=== PATIENT | male | born 1965 | race Caucasian/White ===

== ENCOUNTER 2017-04-21 13:36 | Inpatient (IN) ==
[2017-04-21 13:53] LABS: MANUAL DIFF NEEDED? NO
[2017-04-21 13:58] LABS: BASO% 0.6 % (0.0-0.8); EOS# 0.25 X1000 (0.0-0.7); EOS% 1.9 % (0.0-10.0); HEMATOCRIT 42.9 % (42.0-52.0); HEMOGLOBIN 15.1 g/dL (14.0-18.0); IMM GRAN# 0.08 X1000 (0.0-0.04); IMM GRAN% 0.6 % (0.0-0.5); LYMPH# 2.61 X1000 (1.2-3.4); LYMPH% 19.7 % (20.5-51.1); MCH 30.8 PG (27-31); MCHC 35.2 g/dL (33-37); MCV 87.6 FL (81-99); MONO# 1.41 X1000 (0.11-0.59); MONO% 10.6 % (1.7-9.3); MPV 9.6 FL (7.4-10.4); NEUT% 66.6 % (42.2-75.2); PLT 382 X1000 (130-400)
[2017-04-21] MEDS ORDERED: NS 1,000 ML IV ONE (14:12)
--- NOTE | 2017-04-21 14:13 | Diag Imaging Result Doc PS360 ---
CHEST-2 VIEWS - 04/21/2017 INDICATION: decreased breath sounds on left TECHNIQUE: COMPARISON: None FINDINGS: There is complete opacification of the left lung with volume loss and mediastinal shift to the left. The right lung is grossly clear. No pneumothorax. IMPRESSION: Significant collapse of the left lung. This probably mostly represent atelectasis. Consider chest CT for further evaluation. Intravenous contrast is recommended. Electronically signed by Wilder Gilbert 04/21/2017 2:11 PM
[2017-04-21 14:14] LABS: AGAP 15; ALBUMIN 3.7 g/dL (3.5-5.0); ALKALINE PHOSPHATASE 80 U/L (32-122); BUN 7 mg/dL (8-22); CALCIUM 9.5 mg/dL (8.8-10.2); CHLORIDE 99 mmol/L (98-107); COSMO 277; GOT 20 U/L (10-34); GPT 20 U/L (10-44); POTASSIUM 4.2 mmol/L (3.5-5.1); SODIUM 139 mmol/L (136-145); TCO2 25 mmol/L (25-35); TOTAL BILIRUBIN 0.15 mg/dL (0.20-1.00)
[2017-04-21 14:40] LABS: INR 0.92; PROTIME 9.6 Seconds (9.2-11.7); PTT 25.9 Seconds (22.0-36.0)
--- NOTE | 2017-04-21 15:11 | Diag Imaging Result Doc PS360 ---
THORAX/ABDOMEN/PELVIS - 04/21/2017 INDICATION: SOB with L hip and abd pain TECHNIQUE: A CT dose reduction protocol was used. COMPARISON: None FINDINGS: CHEST: There is a large ill-defined mass centered at the subcarinal fossa, with extensive extension into the left hilum. This causes complete obstruction of the left mainstem bronchus. There is complete collapse of the left lung with a small left pleural effusion. There is severe deviation of the mediastinum and trachea towards the left. There is mild right hilar adenopathy as well. The right lung is somewhat hyperexpanded to make up for the volume loss. The left lung is clear. Bony structures are intact. Abdomen and pelvis: There are cholecystectomy clips. The liver, pancreas, spleen, adrenals, and kidneys are normal. There is moderate vascular disease of the abdominal aorta but no aneurysm or severe stenosis. No bowel obstruction or inflammation. Normal appendix. Urinary bladder, prostate, and rectum are normal. There is a large, ill-defined erosive mass at the left sacral wing. This causes erosion of the midline and the left side of the wing. This also completely fills the S2 and S3 neural foramina. This mass measures about 4.4 x 5.7 cm in AP and lateral dimensions. There are lower lumbar spine fusion changes. IMPRESSION: 1. Large mediastinal mass centered at the left mainstem bronchus, with complete obstruction of the bronchus and collapse of the left lung. There is a small left pleural effusion. 2. 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 Electronically signed by Wilder Gilbert 04/21/2017 3:08 PM
--- NOTE | 2017-04-21 15:47 | PROVIDER DOCUMENTATION ---
This chart was entered by Corinne Olson Scribe, acting as scribe for Lorena Asher MD. HPI-General Adult - General Chief Complaint: Cough Stated Complaint: POSS COLLAPSED LUNG Time Seen by Provider: 04/21/17 14:05 Source: patient Allergies/Adverse Reactions: Patient Allergies Allergy/AdvReac Type Severity Reaction Status Date / Time No Known Allergies Allergy Verified 04/21/17 13:43 Home Medications: Home Medication List Medication Instructions Recorded Confirmed Last Taken Type Hydrocodone/Acetaminophen [[place] 1 each PO DAILY 04/21/17 04/21/17 04/21/17 History 10-325 Tablet] - History of Present Illness -Gen Adult Nature of Presenting Problems: Pt is a 51 yom who came to the ED with a cc of coughing up blood. Pt reports he was at urgent care for back pain and the Doctor listened to his lungs and didn' t hear any breath sounds on the left side. Pt was sent to x-ray and the doctor told him to come to the ED because the left lung is completely white. Pt reports he has been coughing up blood for six months but other than that he is asymptomatic. Location of Pain/Injury: reports: none Pain Radiation: reports: no radiation Quality of Pain: reports: none Onset/Duration: reports: unsure Timing: reports: still present Context/Activities at Onset: reports: none Modifying Factors: improves with: coughing Associated Symptoms: reports: cough Similar Symptoms Previously?: No Recently seen or treated by another doctor?: Yes Review of Systems - Adult - REVIEW OF SYSTEMS - ADULT Constitutional: denies: chills, fever Eyes: reports: no symptoms reported Ears, Nose, Mouth & Throat: reports: no symptoms reported Cardiovascular: denies: chest pain, heart murmur, orthopnea Respiratory: reports: cough, hemoptysis. denies: dyspnea on exertion, pleurisy , shortness of breath Gastrointestinal: reports: no symptoms reported Genitourinary: reports: no symptoms reported Musculoskeletal: reports: no symptoms reported Integumentary: reports: no symptoms reported Neurological: reports: no symptoms reported Psychiatric: reports: no symptoms reported Endocrine: reports: no symptoms reported Hematologic/Lymphatic: reports: no symptoms reported Allergic/Immunologic: reports: no symptoms reported All Other Systems: Reviewed and Negative Past History - Adult - PAST MEDICAL HISTORY-ADULT Review of Records: reports: Nursing Assessment Review Major Childhood Illnesses: reports: denies history Cardiovascular: reports: denies history Respiratory: reports: denies history Gastrointestinal: reports: denies history Obstetrical/Gynecological: reports: denies history Genitourinary: reports: denies history Musculoskeletal: reports: denies history Neurological: reports: denies history Endocrine/Immune: reports: denies history Other Conditions: reports: denies history - IMMUNIZATION STATUS Childhood Immunizations: See Nurse Assessment Flu Vaccine: See Nurse Assessment - FAMILY HISTORY Family History: reviewed, not pertinent - SOCIAL HISTORY Smoking: cigarettes Provider spent 3-5 mins advising pt. on dangers of tobacco.: Discussed manners to quit use, and f/u contacts for add'l counseling. Physical Exam-General - PHYSICAL EXAM-ADULT Initial Vital Signs Reviewed: Yes - CONSTITUTIONAL General Appearance: appears well, alert, no apparent distress - EYES Eyes: PERRL/EOMI, pink conjunctivae - HEAD, EARS, NOSE, MOUTH & THROAT HENMT: normocephalic/atraumatic, moist mucous membranes - NECK Neck: non-tender, full range of motion - RESPIRATORY Respiratory: chest non-tender, decreased breath sounds (left side) - CARDIOVASCULAR Cardiovascular: normal peripheral pulses, regular rate, rhythm - GASTROINTESTINAL (ABDOMEN) Abdominal Exam: normal bowel sounds, non tender, soft - MUSCULOSKELETAL Back Exam: normal inspection, no CVA tenderness Extremity: normal range of motion, non-tender, normal gait - SKIN Integumentary: normal color, normal turgor - NEUROLOGIC Neurologic: grossly normal - PSYCHIATRIC Psych/Mental Status: normal mood/affect, normal thought content, normal thought process, oriented x 3 Progress - PLAN OF CARE/RESULTS Progress/Plan/Lab Results: Vital Signs - 8 hr 04/21/17 13:38 Temperature 97.6 F Pulse Rate 101 H Respiratory Rate 20 Blood Pressure 164/89 O2 Sat by Pulse Oximetry 99 Laboratory Results - last 24 hr 04/21/17 13:47 WBC 13.24 H RBC 4.90 Hgb 15.1 Hct 42.9 MCV 87.6 MCH 30.8 MCHC 35.2 RDW Std Deviation 14.6 H Plt Count 382 MPV 9.6 Immature Gran % (Auto) 0.6 H Neut % (Auto) 66.6 Lymph % (Auto) 19.7 L [place] % (Auto) 10.6 H Eos % (Auto) 1.9 Baso % (Auto) 0.6 Immature Gran # (Auto) 0.08 H Neut # (Auto) 8.81 H Lymph # (Auto) 2.61 [place] # (Auto) 1.41 H Eos # (Auto) 0.25 Baso # (Auto) 0.08 Orders Category Date Time Status CHEST-2 VIEWS [RAD] Stat Exams 04/21/17 13:42 Taken Chest [CT THORAX W/O CONTRAST] [CT] Stat Exams 04/21/17 14:10 Ordered THORAX/ABDOMEN/PELVIS [CT] Stat Exams 04/21/17 14:11 Ordered CBC WITH ELECTRONIC DIFF [HEME] Stat Lab 04/21/17 13:47 Completed CMP [COMPREHENSIVE METABOLIC PANEL] [CHEM] Stat Lab 04/21/17 13:47 Received PROTIME WITH INR [COAG] Stat Lab 04/21/17 14:12 Uncollected PTT [COAG] Stat Lab 04/21/17 14:12 Uncollected TROPONIN T Stat Lab 04/21/17 14:12 Uncollected 0.9% Sodium Chloride Inj [Ns] 1,000 ml Med 04/21/17 14:12 Active IV 999 mls/hr Result Diagrams: 04/21/17 13:47 04/21/17 13:47 - EKG 1 Time of EKG reading by physician:: 15:21 EKG Read and Signed by:: Lorena Asher EKG Interpretation (*Must complete 3 of following elements*): Abnormal Rate: 55 (voltage criteria for left ventricular hypertrophy ) Rhythm: sinus bradycardia - XRAY 1 XRAY Study: Chest (significant collapse of the left lung. This probably mostly represent atelectasis. consider chest CT for further evaluation.) - CT/MRI 1 CT Study: Thorax (1. Lagre mediastinal mass centered at the left mainstem bronchus, with complete obstruction of the bronchus and collapse of the left lung. there is a small left pleural effusion. 2. large bony metastasis at the left sacral wing) - CONSULTS/PCP/HOSPITALIST Notification #1 *Consult/PCP/Hospitalist*: [facility]/Dr. Donato Time Discussed: 15:46 Consult Disposition: Admit Departure - Departure Time of Disposition Decision: 15:46 DIAGNOSIS: Lung mass Disposition: ADMITTED INPATIENT 09 Certified Medical Emergency: Emergent Condition: Stable Referrals and Follow-Ups: None,PCP [Primary Care Provider] - - Critical Care Note This patient required my direct & personal management of CC.: No This chart was documented by the indicated scribe, (Corinne Olson Scribe) and accurately reflects the services I performed and decisions made by me, Lorena Asher MD, as attested by the provider's signature.
--- NOTE | 2017-04-21 16:48 | HISTORY AND PHYSICAL ---
HISTORY OF PRESENT ILLNESS: Mr. Ramirez presented actually for left hip pain to outpatient clinic. He has had chronic left radicular pain, left hip pain, but it has gotten a little more intense recently. He did report that he has coughed up occasional blood with his smoker's cough. He smoked for a long time. He has noted that he gets a little more short of breath when walking up a hill but has not noticed any weight loss. No pleuritic pain. No real trouble with orthopnea or paroxysmal nocturnal dyspnea or chest pain. He came to the emergency room where a chest x-ray showed a completely mahendra out left lung with mediastinal shifting, trachea shifting to the left. CT scan shows a blocked left main bronchus. Did not see a lot of pleural fluid. We did a CT of the chest, abdomen and pelvis. There is large bony metastasis at the left sacral wing. Large mediastinal mass centered in the left main stream bronchitis and complete obliteration of the bronchus, collapse of the lung. There is a small amount of left pleural effusion. FAMILY HISTORY: Noncontributory by his report. SOCIAL HISTORY: He smokes and drinks occasional. REVIEW OF SYSTEMS: No weight gain or loss. No fever or chills.HEENT: Unremarkable. Respiratory: Has a long-term smoker's cough, by his description. Occasionally coughs up some blood in the last 6 months. GI/: No complaints. Endocrinologic/Hematologic: No significant history or complaints. PHYSICAL EXAMINATION: VITAL SIGNS: Temperature 97.6 degrees, pulse 90, respirations 18, blood pressure 140/111. He is 5 feet 9 inches tall, weight 153 pounds. O2 saturation was 98% on room air. HEENT: Pupils are equally round. CVP less than 6 cm. LUNGS: Clear on the right. Left diminished breath sounds throughout. ABDOMEN: Soft. No hepatojugular reflux. No hepatosplenomegaly. EXTREMITIES: Without clubbing, cyanosis, or edema. DIAGNOSTIC DATA: White blood cell count 13,240, hematocrit 42, platelet count 382,000. Sodium 139, potassium 4.2, chloride 99, bicarb 25, BUN 7, creatinine 0.9. Liver functions unremarkable. ProTime 9.6, INR 0.92. PTT is 25. Chest x-ray: Significant collapse of left lung, probably most represents atelectasis. ASSESSMENT/PLAN: Appears to have a left mainstem mass, mediastinal mass and I suspect metastatic lesion to the left sacral area. He is not in any respiratory distress and his air exchange and gas exchange is adequate. We will ask Pulmonary to evaluate. We are going to need to get a tissue biopsy. Of course, we will treat him for possible postobstructive infection. We will put him on some antibiotics just empirically and give him some breathing treatments including steroid inhalers and may benefit from some Solu-Medrol Past medical history, pretty unremarkable except that he has had his gallbladder out and he has had lower back surgery and he has had some chronic left radicular pain. Aware. MEDICATIONS: At home, he takes hydrocodone 10/325 one p.o. daily and I will let him have hydrocodone q.6 hours p.r.n. pain. DIET: Put him on a regular diet. Give him some fluids this. cc: Jarod Lo MD
[2017-04-21] MEDS ORDERED: TYLENOL PO PRN (18:00)
[2017-04-21] MEDS ORDERED: ZOFRAN IV PRN (18:00)
[2017-04-21] MEDS ORDERED: DUONEB (A & A) INH PRN (18:00)
[2017-04-21] MEDS: ADVAIR 250/50 DISKUS INH SCH (19:31)
[2017-04-21] MEDS: NS + KCL 20 MEQ 1,000 ML IV SCH (20:00)
[2017-04-21] MEDS: SOLU-MEDROL IV SCH (20:01)
[2017-04-21] MEDS: ROCEPHIN 1 GM/NS 1 GM/50 ML IVPB IV SCH (20:01)
[2017-04-22] MEDS: SOLU-MEDROL IV SCH ×3 (02:06→17:56)
[2017-04-22] MEDS: PRILOSEC PO SCH (06:15)
[2017-04-22] MEDS: NS + KCL 20 MEQ 1,000 ML IV SCH ×2 (06:15→18:24)
[2017-04-22 06:26] LABS: AGAP 12; ALBUMIN 3.3 g/dL (3.5-5.0); ALKALINE PHOSPHATASE 83 U/L (32-122); BUN 12 mg/dL (8-22); CALCIUM 9.4 mg/dL (8.8-10.2); CHLORIDE 99 mmol/L (98-107); COSMO 276; GOT 18 U/L (10-34); GPT 23 U/L (10-44); MAGNESIUM 1.8 mg/dL (1.5-2.7); SODIUM 137 mmol/L (136-145); TCO2 26 mmol/L (25-35); TOTAL BILIRUBIN 0.33 mg/dL (0.20-1.00); TOTAL PROTEIN 7.5 g/dL (6.3-8.3)
[2017-04-22 06:29] LABS: INR 0.96; PROTIME 10.1 Seconds (9.2-11.7)
[2017-04-22 06:53] LABS: BASO% 0.2 % (0.0-0.8); HEMATOCRIT 43.1 % (42.0-52.0); IMM GRAN# 0.03 X1000 (0.0-0.04); IMM GRAN% 0.2 % (0.0-0.5); LYMPH# 0.79 X1000 (1.2-3.4); MANUAL DIFF NEEDED? YES; MCH 30.5 PG (27-31); MCHC 34.8 g/dL (33-37); MCV 87.8 FL (81-99); MONO% 0.8 % (1.7-9.3); MPV 9.7 FL (7.4-10.4); NEUT% 92.8 % (42.2-75.2); PLT 357 X1000 (130-400); RBC 4.91 XMIL (4.7-6.1)
[2017-04-22 07:15] LABS: BANDS 6 % (0-1); LYMPHS 4 % (21-51); MONO 4 % (1-9)
[2017-04-22] MEDS: ADVAIR 250/50 DISKUS INH SCH ×2 (08:14→18:58)
[2017-04-22] MEDS: NORCO-10 PO PRN ×2 (10:13→18:06)
--- NOTE | 2017-04-22 15:41 | CONSULTATION ---
DATE OF CONSULTATION: 04/22/2017 REQUESTING PHYSICIAN: Dr. Kin Lo. Thank you very much for asking me to see this very pleasant 51-year-old male white. I am pleased to assist in his care. DIAGNOSES: 1. Chronic obstructive pulmonary disease. 2. 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 3. Possible bony metastasis. 4. Cigarette abuse. RECOMMENDATIONS: Will give him broad-spectrum antibiotics, as well as inhaled beta agonist. 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 HISTORY: This very pleasant 51-year-old white male began having some left hip pain. He noticed the onset of some shortness of breath and cough. He has had the hemoptysis for the last 6 weeks, associated with some increased exertional dyspnea. He presented to the emergency room after a clinic x-ray was found to have atelectasis. He presented to the emergency room. A CAT scan demonstrated a large left-sided chest mass, with mediastinal involvement and likely bony metastasis. I am subsequently consulted to review and assist in his care. REVIEW OF SYSTEMS: Except for the features mentioned above, positive for some weakness, weight loss, and some anorexia. No ENT symptoms, other than dysphonia. Some hoarseness. No eye symptoms. No cardiac or pulmonary symptoms, other than the shortness of breath and the hemoptysis. No nausea, vomiting, constipation, diarrhea. No hematuria or polyuria. No dysuria. No joint or muscle pain, stiffness, swelling. No skin rashes, itches, or bruises. No seizures, loss of consciousness, or paralysis. Except for the features mentioned above, all other symptoms on the review of systems are negative. PAST MEDICAL HISTORY: On this young man, it is positive for COPD, as well as hypertension. He denies any previous history of cancer. He denies a previous history of ischemic heart disease, CVA, diabetes mellitus. SOCIAL HISTORY: He is a smoker. Continues to smoke, accumulating nearly a 40-pack year history. The review of systems is otherwise mentioned. FAMILY HISTORY: Noncontributory. PHYSICAL EXAMINATION: Vital Signs: This kind young man shows a blood pressure of 127/82, pulse 90 and regular, respirations 20, temperature 98.3 degrees. HEENT: Reveals no thyromegaly or adenopathy. Pupils are equal and reactive. Extraocular muscles are intact. Neck: Supple. No bruits. No thyromegaly. No JVD. Chest: Reveals bilateral equal breath sounds, with some prolongation of the expiratory phase and forced expiratory wheezes. On the chest radiograph, shows respiratory excursions on the right side with forced expiratory wheezes. There is dullness and absent breath sounds on the left side. Cardiac: Reveals a regular rhythm, without an appreciable murmur. Abdomen: Soft, nontender. No hepatosplenomegaly. Extremities: Revealed no evidence of cyanosis. Skin: Warm and dry. Neurological: Grossly nonfocal. Awake. Moves all 4. LABORATORY DATA: Sodium is 137, potassium 5.0, chloride 99, CO2 20, BUN 12, creatinine 0.8, glucose 138. White count 13,700, hemoglobin of 15.1, hematocrit 43.1, platelets 357,000. The chest radiograph and CT scan shows a large left-sided effusion.
--- NOTE | 2017-04-22 17:53 | PROGRESS NOTE ---
DATE: 04/22/2017 SUBJECTIVE: He is doing well. He has left the floor and walked in the halls. He has gotten to talk to Dr. Rangel, and the plan is to try and do a bronchoscopy in the next couple of days and see if we can identify this mass in the left main bronchus. Nutrition is good. He is breathing comfortably. DIAGNOSTIC DATA: Labs unremarkable. OBJECTIVE: Lungs: On the right, lung is clear. Left has diminished breath sounds throughout. Abdomen: Soft. Skin: Warm and dry. Vital signs: Stable. cc: Jarod Lo MD
[2017-04-22] MEDS: ROCEPHIN 1 GM/NS 1 GM/50 ML IVPB IV SCH (17:56)
[2017-04-23] MEDS: NORCO-10 PO PRN (00:10)
[2017-04-23] MEDS: SOLU-MEDROL IV SCH ×2 (01:26→10:02)
[2017-04-23] MEDS: NS + KCL 20 MEQ 1,000 ML IV SCH ×2 (06:36→16:51)
[2017-04-23] MEDS: PRILOSEC PO SCH (06:37)
[2017-04-23 07:24] VITALS: BP 120/82
--- NOTE | 2017-04-23 12:44 | PROGRESS NOTE ---
DATE: 04/23/2017 ASSESSMENT AND PLAN: 1. Patient admitted on 04/21/2017. He presented with really right hip pain and found left lung atelectasis, likely bronchogenic carcinoma with a mainstem bronchus mass. So will continue broad-spectrum antibiotics and inhaled beta agonist and try to set up for fiberscopic bronchoscopy fairly urgently. Appears to be significant bronchogenic carcinoma with mediastinal and left vocal cord paralysis. 2. He has had some hip pain which has been chronic and appears to be possible bony metastasis to the left sacrum. 3. Tobacco use. 4. Nutrition is okay at this point. I do not see any change in his orders. Continue normal saline at 85 mL an hour. Continue ceftriaxone will repeat another chest x-ray in the morning. cc: Jarod Lo MD
--- NOTE | 2017-04-23 14:25 | Diag Imaging Result Doc PS360 ---
EXAM: CHEST-2 VIEWS HISTORY: L lung atelectasis TECHNIQUE: COMPARISON: 04/21/2017 FINDINGS: There is opacification of the left hemithorax. The mediastinum is shifted from the right to the left. The right lung is hyperexpanded. No infiltrates in the right lung. The vessels are not distended. IMPRESSION: Stable chest Electronically signed by Enmanuel Colon 04/23/2017 2:22 PM
[2017-04-23] MEDS: ADVAIR 250/50 DISKUS INH SCH (16:45)
--- NOTE | 2017-04-23 22:13 | DISCHARGE SUMMARY ---
ADMISSION DATE: 04/21/2017 DISCHARGE DATE: 04/23/2017 HOSPITAL COURSE: Mr. Ramirez was admitted. He actually came in with left hip pain. This has been long-standing, some radicular pain and was found that he had a significant atelectasis in the left lung. CT scan revealed a mass in the left main bronchus, mediastinum and is suspicious for cancer. He has also a CAT scan, we found what looks like a metastatic lesion in the left sacral. So we will set him up. He is breathing comfortably. Gas exchange and air exchange is good. Hemodynamically stable. He has not lost any weight. Eating well. Still smoking. We counseled him on the importance of stopping smoking. We will let him go home on 04/23/2017 with follow up with Dr. Zimmerman. He will need a tissue mass biopsy at some point, preferably in the next couple of weeks. I have discussed this with Dr. Rangel who is contractor [employer]. I will discuss with Dr. Zimmerman as well. DISCHARGE INSTRUCTIONS: On discharge him on Levaquin 750 mg daily for another 7 days. He is not having active bronchospasm or pleuritic pain. cc: Jarod Lo MD
--- NOTE | 2017-04-24 07:39 | EKG Report ---
Test Performed on : 04/22/2017 06:39:08 AM Test Reason : chest pain Blood Pressure : / mmHG Vent. Rate : 091 BPM Atrial Rate : 091 BPM P-R Int : 142 ms QRS Dur : 082 ms QT Int : 364 ms P-R-T Axes : 076 -49 063 degrees QTc Int : 447 ms Normal sinus rhythm. Possible Left atrial enlargement Left anterior fascicular block Cannot rule out Inferior infarct (masked by fascicular block?) , age undetermined Abnormal ECG No previous ECGs available Confirmed by Eduardo Day MD ([id number]) on 04/25/2017 8:18:36 AM
== END 2017-04-23 17:16 | disposition home or self-care (01) ==
LOC: ED 13:36 → 3N 16:56
PROVIDERS: ATTEND Emergency Medicine